=== PATIENT | female | born 1985 | race Caucasian/White ===

== ENCOUNTER 2020-01-08 14:24 | Emergency (ER) | payer OTHER, SELFPAY ==
[2020-01-08 14:30] VITALS: BP 135/83; PULSE 102; RESP 18; TEMP 37.2; O2SAT 97; BMI 34.3
--- NOTE | 2020-01-08 14:36 | DI.RAD.S_ITS ---
PROCEDURE: XR ANKLE RT MIN 3V INDICATIONS: pain/swelling TECHNIQUE: 3 views of the ankle were acquired. COMPARISON: None. FINDINGS: Bones: Minimal lucency at the medial malleolus seen on the AP projection. However, this is not seen on the other views. No dislocations. Ankle mortise is normally aligned. No suspicious bony lesions. Plantar calcaneal spur. Soft tissues: Small tibiotalar joint effusion. Swelling over the lateral malleolus. Achilles tendon appears normal. IMPRESSION: No definite fracture or dislocation. Small tibiotalar joint effusion and swelling over the lateral malleolus. Consider followup radiographs in 10-14 days. Dictated by: Rich Gilliland M.D. on 01/08/2020 at 15:07 Approved by: Rich Gilliland M.D. on 01/08/2020 at 15:13
--- NOTE | 2020-01-08 14:45 | ED.LOWEXIN ---
HPI - Extremity Injury (Lower) <LUIS Ramesh - Last Filed: 01/08/20 18:31> General Chief Complaint: Extremity Injury, Lower Stated Complaint: hiking, rolled ankle, heard a snap Time Seen by Provider: 01/08/20 14:31 Source: patient Mode of arrival: Ambulatory Limitations: no limitations History of Present Illness HPI Narrative: 34yo female presents to the emergency department for right ankle pain and swelling after rolling her ankle while hiking today. She states her ankle when inward and she felt a pop and heard a snap. She was able to bear some weight on the ankle but not completely. Patient denies any previous injury to that ankle in the past such as fractures or surgeries. She denies direct trauma, denies knee pain, foot pain, or other injuries. Patient denies fever, cough, shortness of breath. Related Data Allergies Allergy/AdvReac Type Severity Reaction Status Date / Time cephalexin [From Keflex] Allergy Verified 01/08/20 14:30 Review of Systems <LUIS Ramesh - Last Filed: 01/08/20 18:31> Review of Systems Narrative: REVIEW OF SYSTEMS: GENERAL: Denies fever or chills. HENT: No head trauma. CARDIOVASCULAR: No chest pain or syncope. RESPIRATORY: No shortness of breath or cough. MUSCULOSKELETAL: Complains of right ankle pain, see HPI. INTEGUMENTARY: No rash, lesions, or pruritus. NEURO: No numbness, tingling. PSYCH: No behavior or mood changes. Patient History <LUIS Ramesh - Last Filed: 01/08/20 18:31> Medical History No significant family history (Acute) Social History Smoking Status: Never smoker Smoking Status: Never smoker Substance Use Type: does not use Exam <LUIS Ramesh - Last Filed: 01/08/20 18:31> Initial Vital Signs Initial Vital Signs: Vital Signs Temperature 99 F 01/08/20 14:30 Pulse Rate 102 H 01/08/20 14:30 Respiratory Rate 18 01/08/20 14:30 Blood Pressure 135/83 01/08/20 14:30 Pulse Oximetry 97 01/08/20 14:30 PHYSICAL EXAMINATION: GENERAL: Well groomed, alert, and cooperative. Answers questions promptly and appropriately. Vital signs noted. HENT: Normocephalic, atraumatic. CARDIOVASCULAR: Regular rate. RESPIRATORY: Normal respiratory rate, trachea midline, airway patent. No stridor, nasal flaring or accessory muscle use. MUSCULOSKELETAL: Tenderness to the posterior aspect of right lateral malleolus, moderate malleolar swelling, minute amount of ecchymosis noted to lateral aspect of ankle. Decreased flexion extension due to pain. No pain at the base of the 5th metatarsal or the rest of the foot. Pedal pulses 2+ and equal bilaterally. No pain with palpation to knee or hip. EXTREMITIES: CMS intact. SKIN: Warm, dry, soft, appropriate color for ethnicity. No lesions, rashes, or wounds. NEURO: Alert and Oriented X 3. No sensory deficits. PSYCH: Appropriate affect and mood. <Gadiel Redding DO - Last Filed: 01/09/20 18:20> Initial Vital Signs Initial Vital Signs: Vital Signs Temperature 99 F 01/08/20 14:30 Pulse Rate 102 H 01/08/20 14:30 Respiratory Rate 18 01/08/20 14:30 Blood Pressure 135/83 01/08/20 14:30 Pulse Oximetry 97 01/08/20 14:30 Course <LUIS Ramesh - Last Filed: 01/08/20 18:31> Course Course Narrative: Patient was given IM Toradol for pain relief. Orders Ordered: Discontinued Medications Ketorolac Tromethamine (Toradol) 30 mg IM NOW ONE Stop: 01/08/20 14:40 Last Admin: 01/08/20 14:54 Dose: 30 mg Documented by: DONATO Vital Signs Vital signs: Vital Signs - 8 hr 01/08/20 14:30 Temperature 99 F Pulse Rate 102 H Respiratory Rate 18 Blood Pressure 135/83 Pulse Oximetry 97 <Gadiel Redding DO - Last Filed: 01/09/20 18:20> Orders Ordered: Discontinued Medications Ketorolac Tromethamine (Toradol) 30 mg IM NOW ONE Stop: 01/08/20 14:40 Last Admin: 01/08/20 14:54 Dose: 30 mg Documented by: DONATO Vital Signs Vital signs: Vital Signs - 8 hr 01/08/20 14:30 Temperature 99 F Pulse Rate 102 H Respiratory Rate 18 Blood Pressure 135/83 Pulse Oximetry 97 [facility] - Extremity Injury (Lower) <LUIS Ramesh - Last Filed: 01/08/20 18:31> Medical Records Attestation: I reviewed the patient's medical records. Lab Data Attestation: I reviewed the patient's lab results. Imaging Data Extremity x-ray #1: Radiologist's Impression: [address] [address] XRay Report Signed Patient: Janie Marino CMR#: [id number] : 1985Acct:[id number] Age/Sex: 34 / FDate of Service: 01/08/20 Loc: ED Accession Number: [id number] Procedure: XR ankle RT min 3V Ordering Provider: Cheyanne Villasenor PROCEDURE: XR ANKLE RT MIN 3V INDICATIONS: pain/swelling TECHNIQUE: 3 views of the ankle were acquired. COMPARISON: None. FINDINGS: Bones: Minimal lucency at the medial malleolus seen on the AP projection. However, this is not seen on the other views. No dislocations. Ankle mortise is normally aligned. No suspicious bony lesions. Plantar calcaneal spur. Soft tissues: Small tibiotalar joint effusion. Swelling over the lateral malleolus. Achilles tendon appears normal. IMPRESSION: No definite fracture or dislocation. Small tibiotalar joint effusion and swelling over the lateral malleolus. Consider followup radiographs in 10-14 days. Dictated by: Rich Gilliland M.D. on 01/08/2020 at 15:07 Approved by: Rich Gilliland M.D. on 01/08/2020 at 15:13 [facility] Narrative Medical decision making narrative: 34-year-old female presents emergency department for right ankle pain. Differential includes sprain versus strain. Less likely fracture as x-rays negative. Patient was given a splint and crutches to help with weight-bearing. She is encouraged to follow in 1 week for further evaluation possible repeat x-ray. Return precautions given for new or worsening symptoms. Patient agrees plan of care verbalized understanding. Discharge Plan Departure Patient Disposition: Home Clinical Impression: Ankle sprain and strain Discharge Date/Time: 01/08/20 16:05 Instructions: DI for Ankle Sprain Activity Restrictions/Additional Instructions: Thank you for entrusting me with your care today. As discussed, your x-rays negative for a fracture. Your pain is most likely caused by an ankle sprain, however there is a significant amount of swelling over your lateral malleolus. I do suggest you follow up with your primary care provider in 1 week for further evaluation and possible repeat x-ray if indicated. With these type of injuries, I suggest: 1. Protection: Do not perform any activities that cause you significant pain. It is important that you slowly began to use the affected joint but do not over use it causing further pain and injury. Use splints and/or braces as advised. 2. Rest: Elevate injured area when at rest. 3. Ice: You may apply ice to the area in the 1st 24 hours can cause some pain relief. Do not apply ice to direct skin. Do not apply ice for longer than 15 minutes. There was some controversy that ice may slow musculoskeletal healing, I suggest not using ice after 24-48 hours. 4. Compression: Compression with an jamie bandage can minimize swelling and provide support. Always wrap the jamie bandage towards your heart. Monitor the area for numbness, tingling, or worsening pain as this may indicate you have applied the bandage to tight. 5. Follow-up: Is important that you follow-up with your primary care provider in the next few weeks if your symptoms continue. Some injuries require further treatment such as physical therapy. Return emergency department for any new or worsening symptoms such as severe pain, high fevers, chest pain, shortness breath, or any other concerns.. <Gadiel Redding DO - Last Filed: 01/09/20 18:20> [facility] Att[facility]: I was immediately available in the department for consultation. This documentation has been reviewed and I agree with assessment and plan. Supervised by Gadiel Redding DO
[2020-01-08] MEDS: KETOROLAC 60 MG/2 ML VIAL 30 MG IM (14:54)
== END 2020-01-08 16:05 | disposition home or self-care (01) ==
PROVIDERS: Emergency Provider Nurse Practitioner
DX: S93.401A Sprain of unspecified ligament of right ankle, initial encounter (principal); S96.911A Strain of unspecified muscle and tendon at ankle and foot level, right foot, initial encounter; Y93.01 Activity, walking, marching and hiking
CPT/HCPCS: 73610; 96372; 99283; J1885